=== PATIENT | male | born 1995 | race Two or more races ===

== ENCOUNTER 2018-09-11 20:08 | Emergency (ER) | payer MEDICAID ==
[~2018-09-11] VITALS: Ht 165.1 cm; Wt 76.2 kg
[2018-09-11 23:54] VITALS: BP 143/96
== END 2018-09-12 01:25 | disposition home or self-care (01) ==
LOC: ER 20:10
DX: S20.211A Contusion of right front wall of thorax, initial encounter (principal); W01.0XXA Fall on same level from slipping, tripping and stumbling without subsequent striking against object, initial encounter; Y93.89 Activity, other specified; Y92.89 Other specified places as the place of occurrence of the external cause; Y99.8 Other external cause status
CPT/HCPCS: 71101